=== PATIENT | male | born 1990 | race Caucasian/White ===

== ENCOUNTER 2020-03-17 17:43 | Emergency (ER) | payer SELFPAY, OTHER ==
[2020-03-17] MEDS ORDERED: AMIODARONE IN DEXTROSE,ISO-OSM 360 MG/200 ML BAG IV ONE (17:44)
[2020-03-17] MEDS ORDERED: NA CHLORIDE 0.9% 1,000 ML IV ONE (17:44)
[2020-03-17 18:03] LABS: Absolute Lymphocytes (CBC) 5.9 K/uL (0.7-4.9); Basophils % 0.9 % (0-1.3); Hematocrit 47.6 % (39.6-49.0); Lymphocytes % 40.1 % (15.3-44.8); MPV 8.9 fL (7.6-11.3); RBC Red Blood Cell Count 5.02 M/uL (4.33-5.43)
[2020-03-17] MEDS ORDERED: AMIODARONE HCL 150 MG/3 ML INJ IV ONE ×2 (18:09→18:17)
[2020-03-17] MEDS ORDERED: D5W 250 ML IV ONE (18:10)
[2020-03-17 18:13] LABS: Protime INR 1.14
[2020-03-17] MEDS ORDERED: MIDAZOLAM HCL 2 MG/2 ML INJ ONE ×4 (18:19→20:46)
[2020-03-17] MEDS ORDERED: LORazepam 2 MG/ML VIAL ONE (18:19)
[2020-03-17 18:39] LABS: ALT/SGPT 76 U/L (12-78); Albumin 2.7 g/dL (3.4-5.0); Alkaline Phosphatase 94 U/L (45-117); BUN Blood Urea Nitrogen 8 mg/dL (7-18); Bicarbonate 21 mmol/L (21-32); Bilirubin Direct 0.1 mg/dL (0-0.2); Bilirubin Total 0.6 mg/dL (0.2-1.0); Glucose Level 322 mg/dL (74-106); NT PRO-BNP 20 pg/mL (<125); Protein, Total 5.4 g/dL (6.4-8.2); Sodium Level 141 mmol/L (136-145); Troponin (Emerg Dept Use Only) 0.42 ng/mL (0.0-0.045)
[2020-03-17 18:40] LABS: AST/SGOT 116 U/L (15-37); Magnesium 1.9 mg/dL (1.8-2.4); Potassium 3.8 mmol/L (3.5-5.1)
--- NOTE | 2020-03-17 19:08 | RAD REPORT ---
EXAM DESCRIPTION: CT - Head Brain Wo Cont - 03/17/2020 6:55 pm CLINICAL HISTORY: unresponsive Headache, drowsiness, unresponsive, seizure like activity COMPARISON: No comparisons TECHNIQUE: All CT scans are performed using dose optimization technique as appropriate and may inclu de automated exposure control or mA/KV adjustment according to patient size. FINDINGS: No intracranial hemorrhage, hydrocephalus or extra-axial fluid collection.No areas of brai n edema or evidence of midline shift. The paranasal sinuses and mastoids are essentially clear. The calvarium is intact. IMPRESSION: No acute intracranial abnormality.
--- NOTE | 2020-03-17 19:08 | RAD REPORT ---
EXAM DESCRIPTION: RAD - Chest Single View - 03/17/2020 6:35 pm CLINICAL HISTORY: unresponsive Chest pain. COMPARISON: No comparisons FINDINGS: Portable technique limits examination quality. Moderate patchy pulmonary opacities are present, greater on the left, likely representing pulmonary e susanna or pneumonia. The heart is normal in size. ET tube tip is above the norbert.Enteric tube tip is i n the distal esophagus.
[2020-03-17] MEDS ORDERED: propofoL 1,000 MG/100 ML VIAL IV ONE (19:10)
--- NOTE | 2020-03-17 19:12 | RAD REPORT ---
EXAM DESCRIPTION: CT - Chest For Pe Angio - 03/17/2020 6:55 pm CLINICAL HISTORY: Chest pain. CPR COMPARISON: No comparisons TECHNIQUE: CT angiogram of the pulmonary arteries was performed with MIP. All CT scans are performed using dose optimization technique as appropriate and may include automated exposure control or mA/KV adjustment according to patient size. FINDINGS: Small filling defects are seen in both subsegmental lower lobe pulmonary arterial branches . These are likely small pulmonary emboli. No acute aortic finding demonstrated. Moderate bilateral pulmonary opacities are present suggesting pulmonary edema or pneumonia. Large air space consolidation in the left lung base posteriorly likely represents pneumonia. ET tube tip is abo ve the norbert. Enteric tube tip is in the distal esophagus. No significant pericardial or pleural fluid. No concerning bony finding. IMPRESSION: Small bilateral subsegmental branch pulmonary thromboemboli suspected in both lower lobe s. Extensive bilateral airspace pulmonary consolidations suggesting pulmonary edema or pneumonia. Endotr acheal intubation with tip above the norbert.
[2020-03-17] MEDS ORDERED: PIPER/TAZO/NS 3.375gm 3.375 GM/100 ML BAG ONE (19:21)
[2020-03-17 19:27] LABS: Barbiturates NEGATIVE (NEGATIVE); Benzodiazepines POSITIVE (NEGATIVE); Cocaine NEGATIVE (NEGATIVE); METHAMPHETAM NEGATIVE (NEGATIVE); Methadone NEGATIVE (NEGATIVE); Opiates NEGATIVE (NEGATIVE); Phencyclidine NEGATIVE (NEGATIVE); THC Cannibis NEGATIVE (NEGATIVE)
--- NOTE | 2020-03-17 19:38 | EDPHYS ---
Physician Documentation [facility] Chris Name: Delonte Jordan Age: 29 yrs Sex: Male : 1990 Arrival Date: 03/17/2020 Time: 17:47 Bed 3 Private MD: ED Physician Mir Ledezma HPI: 03/17 18:46 This 29 yrs old Male presents to ER via Unassigned with complaints of rn seizure, collapse. 17:56 Per EMS, patient was seen drinking a [employer] energy drink, collapsed, witnessed rn seizure, noted to be pulseless, + bystander CPR started, continued for about 7 minutes until EMS arrived, ACLS performed, intubated, and continued for about 15-20 min until ROSC. No known medical problems. . 18:46 Preceding the arrest, the patient collapsed. Pre-hospital course: The arrest was rn witnessed Bystanders at the scene performed CPR. EMS care prior to arrival: initiation of ACLS, intubation backboard, ACLS has been in progress for 20 minutes. The patient has not experienced similar symptoms in the past. father reports about to eat, turned around, collapsed, had seizure like activity. + family member with hx of seizures. No trauma noted, father caught him and let him down. No drug use. Just came back from [place]. . Historical: - Allergies: 19:17 Unable to obtain; ph - PMHx: 19:17 Unable to obtain; ph - Immunization history:: Adult Immunizations unknown. - Social history:: Smoking status: unknown. - Hospitalizations: : No recent hospitalization is reported. - History obtained from: father. ROS: 18:46 Unable to obtain ROS due to obtunded state. rn Exam: 18:46 Constitutional: Thin male, sedated, intubated, bright red blood from ETT Head/Face: rn Normocephalic, atraumatic. ENT: Blood in bilateral nares Cardiovascular: Tahcycardic, regular Respiratory: Coarse bilateral breath sounds, worse on left Abdomen/GI: soft, non-tender MS/ Extremity: Pulses equal, no cyanosis. Neuro: GCS 3, intubated 20:28 ECG was reviewed by the Attending Physician. aileen Vital Signs: 18:00 BP 130 / 95; Pulse 126; Resp 18 A; Pulse Ox 98% on 15 lpm ETT ambu; ph 18:15 BP 126 / 79; Pulse 130; Resp 16; Pulse Ox 100% on ETT vent; ph 18:30 BP 115 / 76; Pulse 128; Resp 18; Pulse Ox 100% on ETT vent; ph 18:45 BP 121 / 92; Pulse 118; Resp 18; Pulse Ox 100% on ETT vent; ph 19:00 BP 121 / 74; Pulse 117; Resp 18; Pulse Ox 100% on ETT vent; ph 19:15 Weight 90 kg; lp1 19:17 Temp 96.7(C); mg2 19:18 BP 135 / 73; Pulse 114; Resp 18; Pulse Ox 99% ; mg2 20:12 BP 115 / 70; Pulse 122; Resp 16; Temp 98.2; Pulse Ox 100% on 100% FiO2 ETT vent; mg2 20:25 BP 116 / 68; Pulse 115; Resp 16; Temp 98.6; Pulse Ox 97% on 100% FiO2 ETT vent; mg2 20:45 BP 100 / 61; Pulse 110; Resp 16; Temp 98.7(C); Pulse Ox 98% on 100% FiO2 ETT vent; mg2 21:10 BP 104 / 76; Pulse 101; Resp 17; Temp 98.7; Pulse Ox 100% on 100% FiO2 ETT vent; mg2 Procedures: 17:55 Central Line: the site was prepped with Betadine, in sterile fashion, a triple lumen rn catheter was inserted, in the right femoral vein, in 1 attempts. placement was verified, by blood return, the site was dressed with Tegaderm, using sterile technique, the patient tolerated the procedure, well. MDM: 17:54 Patient medically screened. rn 18:46 Differential diagnosis: arrythmia, cardiac arrest, respiratory arrest, seizure. ED rn course: EMS reports giving ketamine after ROSC because patient sat up and was combative. They report purposeful movement as well and moving all 4 extremities. . 19:20 ED course: Consulted with Dr. Marley, recommends heparin given possible pulmonary rn hemorrhage, so can turn off if worsens. Also recommends steroids. COVID test sent. . 19:29 ED course: Initiated transfer to [facility] for bilateral PE with pulmonary hemorrhage. rn Is requiring sedation, abx ordered. . 19:33 Data reviewed: vital signs, nurses notes, lab test result(s), EKG, radiologic studies, rn CT scan, plain films, and as a result, I will admit patient. Counseling: I had a detailed discussion with the patient and/or guardian regarding: the historical points, exam findings, and any diagnostic results supporting the discharge/admit diagnosis, lab results, radiology results, the need to transfer to another facility, for higher level of care. Response to treatment: the patient's symptoms have mildly improved after treatment, and as a result, I will admit patient. 03/17 17:52 Order name: Acetaminophen; Complete Time: 18:53 eb 03/17 17:52 Order name: Basic Metabolic Panel; Complete Time: 18:53 eb 03/17 17:52 Order name: CBC with Diff; Complete Time: 18:32 eb 03/17 17:52 Order name: ETOH Level; Complete Time: 18:32 eb 03/17 17:52 Order name: Hepatic Function; Complete Time: 18:53 eb 03/17 17:52 Order name: PT-INR; Complete Time: 18:32 eb 03/17 17:52 Order name: Ptt, Activated; Complete Time: 18:32 eb 03/17 17:52 Order name: Salicylate; Complete Time: 18:53 eb 03/17 17:52 Order name: Urine Drug Screen; Complete Time: 19:35 eb 03/17 17:52 Order name: TS; Complete Time: 20:26 eb 03/17 17:52 Order name: glucometer results - FOR PT WITH NO ID; Complete Time: 18:32 dh3 03/17 17:51 Order name: XRAY Chest (1 view); Complete Time: 19:11 eb 03/17 17:51 Order name: CT Head Brain wo Cont; Complete Time: 19:11 eb 03/17 17:54 Order name: Lactate; Complete Time: 18:32 eb 03/17 18:03 Order name: Troponin (Emerg Dept Use Only); Complete Time: 18:53 EDMS 03/17 18:03 Order name: NT PRO-BNP; Complete Time: 18:53 EDMS 03/17 18:04 Order name: Magnesium; Complete Time: 18:53 EDMS 03/17 18:33 Order name: CT Chest For PE Angio; Complete Time: 19:14 rn 03/17 20:12 Order name: ABO/RH no charge; Complete Time: 20:26 EDMS 03/17 20:46 Order name: SARS-COV-2 RT PCR EDDE 03/17 21:08 Order name: Lactate Sepsis 2 HR Follow-up EDDE 03/17 17:52 Order name: EKG; Complete Time: 17:53 eb 03/17 17:52 Order name: EKG - Nurse/Tech; Complete Time: 19:15 eb 03/17 17:52 Order name: IV Saline Lock; Complete Time: 19:15 eb 03/17 17:52 Order name: Labs collected and sent; Complete Time: 19:16 eb 03/17 17:52 Order name: Urine Dipstick-Ancillary (obtain specimen); Complete Time: 19:16 eb 03/17 17:54 Order name: Cardiac monitoring; Complete Time: 19:16 eb 03/17 17:54 Order name: O2 Per Protocol; Complete Time: 19:16 eb 03/17 17:54 Order name: O2 Sat Monitoring; Complete Time: 19:16 eb 03/17 17:55 Order name: NG Tube; Complete Time: 19:02 rn 03/17 18:10 Order name: Labs - recollect needed: green top/ hemolyzed; Complete Time: 19:02 eb EC:28 Rate is 116 beats/min. Rhythm is regular. QRS [place] is Normal. [place] interval is normal. aileen QRS interval is normal. QT interval is normal. No Q waves. T waves are Normal. Clinical impression: Sinus tachycardia and No evidence of ischemia. Interpreted by me. Reviewed by me. Administered Medications: 18:10 Drug: Ativan 2 mg Route: IVP; Site: right femoral; ph 19:39 Follow up: Response: No adverse reaction ph 18:15 Drug: Versed 2 mg Route: IVP; Site: right femoral; ph 19:39 Follow up: Response: No adverse reaction ph 18:15 Drug: amiodarone 450 mg, D5W 250 ml Route: IVPB; Rate: 1 mg/min; Site: right femoral; ph 21:09 Follow up: IV Status: Infusion continued upon transfer mg2 18:20 Drug: NS 0.9% 1000 ml Route: IV; Rate: 1 bolus; Site: right femoral; ph 19:37 Follow up: IV Status: Completed infusion; IV Intake: 1000ml lp1 19:39 Follow up: Response: No adverse reaction; IV Status: Completed infusion; IV Intake: ph 1000ml 18:40 Drug: Versed 2 mg Route: IVP; Site: right femoral; ph 19:39 Follow up: Response: No adverse reaction ph 19:00 Drug: Propofol 5 mcg/kg/min Route: IV; Rate: calculated rate; Site: right femoral; lp1 21:09 Follow up: Response: No adverse reaction; IV Status: Infusion continued upon transfer mg2 19:15 Drug: Zosyn 3.375 grams Route: IVPB; Infused Over: 60 mins; Site: right femoral; mg2 20:30 Follow up: Response: No adverse reaction; IV Status: Completed infusion mg2 19:16 Drug: NS 0.9% 1000 ml Route: IV; Rate: 1000 ml; Site: right femoral; mg2 20:29 Follow up: Response: No adverse reaction; IV Status: Completed infusion; IV Intake: mg2 1000ml 19:29 CANCELLED (will await consultation): Heparin (DVT/PE Drip) 18 units/kg/hr - ([place] 7[address]03 units, D5W 500 ml) IV at calculated rate Per protocol; Max initial rate 1800 units/hr 19:39 Drug: NS 0.9% 1000 ml Route: IV; Rate: 1000 ml; Site: right femoral; lp1 21:08 Follow up: Response: No adverse reaction; IV Status: Completed infusion; IV Intake: mg2 1000ml 19:50 Drug: ProTONIX 40 mg Route: IVP; Site: right femoral; mg2 20:29 Follow up: Response: No adverse reaction mg2 19:55 Drug: Decadron - Dexamethasone 10 mg Route: IVP; Site: left antecubital; mg2 21:09 Follow up: Response: No adverse reaction mg2 19:57 Drug: Versed 2 mg Route: IVP; Site: right femoral; mg2 20:29 Follow up: Response: No adverse reaction mg2 20:00 Drug: vancoMYCIN 1 grams Route: IVPB; Infused Over: 2 hrs; Site: right femoral; mg2 21:08 Follow up: Response: No adverse reaction; IV Status: Infusion continued upon transfer mg2 20:12 Drug: Versed 2 mg Route: IVP; Site: right femoral; mg2 20:30 Follow up: Response: No adverse reaction mg2 20:24 Drug: D5-1/2 NS with KCl 20 mEq/L 1000 ml Route: IV; Rate: 150 ml/hr; Site: right mg2 femoral; 21:08 Follow up: Response: No adverse reaction; IV Status: Infusion continued upon transfer mg2 20:24 Drug: Versed 2 mg Route: IVP; Site: right femoral; mg2 21:07 Follow up: Response: No adverse reaction mg2 20:42 Drug: Versed 2 mg Route: IVP; Site: right femoral; mg2 21:07 Follow up: Response: No adverse reaction mg2 21:07 Drug: Versed 2 mg Route: IVP; Site: right femoral; mg2 21:07 Follow up: Response: No adverse reaction mg2 Disposition: 19:33 Critical Care:. rn Disposition: 03/17/20 19:[address] [facility]. Diagnosis are Pulmonary embolism, Pneumonia, unspecified organism, Pulmonary hemorrhage. - Reason for transfer: Higher level of care. - Accepting physician is . - Condition is Serious. - Problem is new. - Symptoms have improved. Critical care time excluding procedures: 19:33 Critical care time: Bedside Care: 35 minutes, Consultation: 5 minutes, Family rn Intervention: 5 minutes. Total time: 45 minutes Signatures: Dispatcher [employer] EDMS Mir Ledezma MD MD cha Waters, Shelly, PEER EDUCATOR-C PEER EDUCATOR-Csnw Corey Bello MD MD rn Pena, Laura RN RN lp1 Edie Peters RN RN Kaela Holder Michele, RN RN mg2 Corrections: (The following items were deleted from the chart) 18:03 17:55 MAGNESIUM+C.LAB.BRZ ordered. EDDE EDDE 18:03 17:55 PROBNP+C.LAB.BRZ ordered. [facility] EDDE 18:03 17:55 TROPONIN (EMERG DEPT USE ONLY)+C.LAB.BRZ ordered. [facility] EDDE 19:29 19:19 Heparin (DVT/PE Drip) 18 units/kg/hr - (HEParin 48957 units, D5W 500 ml) IV at rn calculated rate Per protocol; Max initial rate 1800 units/hr ordered. rn 19:49 19:20 CORONAVIRUS+MR.LAB.BRZ ordered. [facility] EDDE 21:22 19:37 03/17/2020 19:[address] [facility]. mg2 Diagnosis is Pulmonary embolism; Pneumonia, unspecified organism; Pulmonary hemorrhage. Reason for transfer: Higher level of care. Accepting physician is . Condition is Serious. Problem is new. Symptoms have improved. rn
--- NOTE | 2020-03-17 19:38 | ER ---
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 17:55 Care prior to arrival: Oral intubation, CPR manually performed by bystander performed ph by EMS was defibrillated Medication(s) given: Epinephrine, Amiodarone, Ketamine IV initiated. IO to L lower leg. Compressions began prior to arrival. 18:27 Coronavirus screen: At this time, unable to obtain information related to travel ph outside the [place] Ebola Screen: No symptoms or risks identified at this time. Initial Sepsis Screen: Does the patient meet any 2 criteria? No. Patient's initial sepsis screen is negative. Does the patient have a suspected source of infection? No. Patient's initial sepsis screen is negative. Risk Assessment: Do you want to hurt yourself or someone else? Unable to obtain. Onset of symptoms was March 17, 2020. 18:27 Acuity: OANH 1 ph 18:27 Method Of Arrival: EMS: [facility] ph Historical: - Allergies: 19:17 Unable to obtain; ph - PMHx: 19:17 Unable to obtain; ph - Immunization history:: Adult Immunizations unknown. - Social history:: Smoking status: unknown. - Hospitalizations: : No recent hospitalization is reported. - History obtained from: father. Screenin:36 Abuse screen: Denies threats or abuse. Denies injuries from another. Nutritional ph screening: No deficits noted. Tuberculosis screening: No symptoms or risk factors identified. Fall Risk None identified. Assessment: 18:00 CPR assessment: unresponsive, intubated, Ambu ventilation, pale. 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 General: Appears slender, Behavior is unresponsive. Neuro: Level of Consciousness is unresponsive, Oriented to none. EENT: Nares with bleeding noted bilaterally. Cardiovascular: Capillary refill is sluggish in bilateral fingers Rhythm is sinus tachycardia. Respiratory: Airway is patent via oral intubation Respiratory effort is even, Respiratory pattern is regular, Ventilator assessment: ET Tube: 6.5. Derm: Skin is intact, Skin is pale, Skin temperature is cool. 18:30 Reassessment: Blood noted in ET tube, ERP notified, RT at bedside. ph 18:35 Reassessment: Pt taken to CT by RN and RT. ph 19:15 General: Appears intubated. Pain: Unable to use pain scale. Patient appears restless. mg2 Neuro: Level of Consciousness is listless. Cardiovascular: Capillary refill is sluggish Rhythm is sinus tachycardia. Respiratory: Airway is patent via oral intubation Respiratory effort is even, Respiratory pattern is regular. 19:15 Musculoskeletal: Capillary refill is sluggish. mg2 20:06 Reassessment: father at bedside with patient. lp1 20:45 Reassessment: father informed about the plan for transfer. mg2 21:00 Reassessment: report given to MAYE Doe of [facility] ICU. family signed the mg2 consent for transfer. 21:16 Reassessment: report given to [facility] [employer]. patient vitally stable. iv intact. covid mg2 negative. Vital Signs: 18:00 BP 130 / 95; Pulse 126; Resp 18 A; Pulse Ox 98% on 15 lpm ETT ambu; ph 18:15 BP 126 / 79; Pulse 130; Resp 16; Pulse Ox 100% on ETT vent; ph 18:30 BP 115 / 76; Pulse 128; Resp 18; Pulse Ox 100% on ETT vent; ph 18:45 BP 121 / 92; Pulse 118; Resp 18; Pulse Ox 100% on ETT vent; ph 19:00 BP 121 / 74; Pulse 117; Resp 18; Pulse Ox 100% on ETT vent; ph 19:15 Weight 90 kg; lp1 19:17 Temp 96.7(C); mg2 19:18 BP 135 / 73; Pulse 114; Resp 18; Pulse Ox 99% ; mg2 20:12 BP 115 / 70; Pulse 122; Resp 16; Temp 98.2; Pulse Ox 100% on 100% FiO2 ETT vent; mg2 20:25 BP 116 / 68; Pulse 115; Resp 16; Temp 98.6; Pulse Ox 97% on 100% FiO2 ETT vent; mg2 20:45 BP 100 / 61; Pulse 110; Resp 16; Temp 98.7(C); Pulse Ox 98% on 100% FiO2 ETT vent; mg2 21:10 BP 104 / 76; Pulse 101; Resp 17; Temp 98.7; Pulse Ox 100% on 100% FiO2 ETT vent; mg2 ED Course: 17:47 Patient arrived in ED. sv 17:50 Inserted saline lock: 20 gauge in left antecubital area, using aseptic technique. sv ,using aseptic technique. done by Edie VILLAVICENCIO Blood collected. 17:54 Corey Bello MD is Attending Physician. rn 18:00 Assisted provider with central line placement. Set up central line tray. Triple lumen ph line placed in right femoral. Line placed by Corey Bello MD Placement verified by CXR, blood return, Dressed with Tape, Tegaderm, Patient tolerated well. Before procedure, did Practitioner(s) obtain informed consent? No. Patient \\T\\ family education about procedure, CLABSI prevention and S/S of infection? No. Time-out/Briefing performed prior to start of procedure? Yes. Was handwashing/sanitizing done immediately prior to procedure? Yes. Was patient positioned to in a way to prevent air embolism? Yes. Was procedure site sterilized? Yes, with Was the site allowed to dry? No. Was local anesthetic and/or sedation utilized? Yes. During the procedure, did the Practitioner(s) maintain a sterile field? Yes. Were unused ports clamped during insertion? Yes. Was a 2nd qualified MD obtained after 3 unsuccessful insertion attempts? No. Was blood aspirated from each lumen? Yes. After the procedure, did the Practitioner(s) clean the site and apply a sterile dressing? Yes. 18:05 [place] cath inserted, using sterile technique, 16 Fr., by ED staff, balloon inflated, to ph gravity drainage, urine specimen collected. NGT: inserted 16 Fr. other oral route verified return of gastric contents, Placement verified by X-ray, to intermittent suction. Returned gastric contents. Patient tolerated well. 18:27 Edie Peters, MAYE is Primary Nurse. ph 18:35 XRAY Chest (1 view) In Process Unspecified. EDMS 18:55 CT Head Brain wo Cont In Process Unspecified. EDMS 18:55 CT Chest For PE Angio In Process Unspecified. EDMS 18:58 Triage completed. ph 19:07 Primary Nurse role handed off by Edie Peters, MAYE mw2 19:15 Manuel Collier, MAYE is Primary Nurse. mg2 19:22 Patient has correct armband on for positive identification. Placed in gown. Bed in low ph position. Call light in reach. Side rails up X2. equipment maintenance engineer on. Pulse ox on. NIBP on. 19:22 initiated a transfer with Shanae Mir from the [facility]. mw2 19:27 Patient transferred, IV remains in place. ph 19:36 Arm band placed on left wrist. ph 20:00 Shanae Mir from [facility] called and stated "we are still waiting mw2 for the nursing home assistant to find the pt a bed.". 20:06 Attending Physician role handed off by Corey Bello MD aileen 20:06 Mir Ledezma MD is Attending Physician. [facility] 20:23 called Shanae Mir from [facility] to get an update on the transfer. mw2 She stated " we are still waiting for a bed and the doctor to call back.". 20:24 initiated a transfer with Noemy Baumann from [facility]. mw2 20:42 repeat lactate sent to lab. mg2 Administered Medications: 18:10 Drug: Ativan 2 mg Route: IVP; Site: right femoral; ph 19:39 Follow up: Response: No adverse reaction ph 18:15 Drug: Versed 2 mg Route: IVP; Site: right femoral; ph 19:39 Follow up: Response: No adverse reaction ph 18:15 Drug: amiodarone 450 mg, D5W 250 ml Route: IVPB; Rate: 1 mg/min; Site: right femoral; ph 21:09 Follow up: IV Status: Infusion continued upon transfer mg2 18:20 Drug: NS 0.9% 1000 ml Route: IV; Rate: 1 bolus; Site: right femoral; ph 19:37 Follow up: IV Status: Completed infusion; IV Intake: 1000ml lp1 19:39 Follow up: Response: No adverse reaction; IV Status: Completed infusion; IV Intake: ph 1000ml 18:40 Drug: Versed 2 mg Route: IVP; Site: right femoral; ph 19:39 Follow up: Response: No adverse reaction ph 19:00 Drug: Propofol 5 mcg/kg/min Route: IV; Rate: calculated rate; Site: right femoral; lp1 21:09 Follow up: Response: No adverse reaction; IV Status: Infusion continued upon transfer mg2 19:15 Drug: Zosyn 3.375 grams Route: IVPB; Infused Over: 60 mins; Site: right femoral; mg2 20:30 Follow up: Response: No adverse reaction; IV Status: Completed infusion mg2 19:16 Drug: NS 0.9% 1000 ml Route: IV; Rate: 1000 ml; Site: right femoral; mg2 20:29 Follow up: Response: No adverse reaction; IV Status: Completed infusion; IV Intake: mg2 1000ml 19:29 CANCELLED (will await consultation): Heparin (DVT/PE Drip) 18 units/kg/hr - ([place] rn 29276 units, D5W 500 ml) IV at calculated rate Per protocol; Max initial rate 1800 units/hr 19:39 Drug: NS 0.9% 1000 ml Route: IV; Rate: 1000 ml; Site: right femoral; lp1 21:08 Follow up: Response: No adverse reaction; IV Status: Completed infusion; IV Intake: mg2 1000ml 19:50 Drug: ProTONIX 40 mg Route: IVP; Site: right femoral; mg2 20:29 Follow up: Response: No adverse reaction mg2 19:55 Drug: Decadron - Dexamethasone 10 mg Route: IVP; Site: left antecubital; mg2 21:09 Follow up: Response: No adverse reaction mg2 19:57 Drug: Versed 2 mg Route: IVP; Site: right femoral; mg2 20:29 Follow up: Response: No adverse reaction mg2 20:00 Drug: vancoMYCIN 1 grams Route: IVPB; Infused Over: 2 hrs; Site: right femoral; mg2 21:08 Follow up: Response: No adverse reaction; IV Status: Infusion continued upon transfer mg2 20:12 Drug: Versed 2 mg Route: IVP; Site: right femoral; mg2 20:30 Follow up: Response: No adverse reaction mg2 20:24 Drug: D5-1/2 NS with KCl 20 mEq/L 1000 ml Route: IV; Rate: 150 ml/hr; Site: right mg2 femoral; 21:08 Follow up: Response: No adverse reaction; IV Status: Infusion continued upon transfer mg2 20:24 Drug: Versed 2 mg Route: IVP; Site: right femoral; mg2 21:07 Follow up: Response: No adverse reaction mg2 20:42 Drug: Versed 2 mg Route: IVP; Site: right femoral; mg2 21:07 Follow up: Response: No adverse reaction mg2 21:07 Drug: Versed 2 mg Route: IVP; Site: right femoral; mg2 21:07 Follow up: Response: No adverse reaction mg2 Intake: 19:37 IV: 1000ml; Total: 1000ml. lp1 19:39 IV: 1000ml; Total: 2000ml. ph 20:29 IV: 1000ml; Total: 3000ml. mg2 21:08 IV: 1000ml; Total: 4000ml. mg2 Outcome: 19:37 ER care complete, transfer ordered by . rn 21:10 Transferred by helicopter to [facility] completed. mg2 21:10 Condition: stable 21:10 Instructed on the need for transfer, Demonstrated understanding of instructions. 21:12 Outcome report given to [facility] mg2 21:22 Patient left the ED. mg2 Signatures: Dispatcher [employer] EDAnabela Lee, RN RN Mir Ledezma MD MD cha Nieto, Roman, MD MD rn Pena, Laura, RN RN lp1 Edie Peters RN RN Fuad Ribeiro mw2 Manuel Collier RN RN mg2 Corrections: (The following items were deleted from the chart) 19:38 18:10 [place] cath inserted, using sterile technique, 16 Fr., by ED staff, balloon ph inflated, to gravity drainage, urine specimen collected. NGT: inserted 16 Fr. other oral route verified return of gastric contents, Placement verified by X-ray, to intermittent suction. Returned gastric contents. Patient tolerated well. ph 21:15 21:12 Outcome report given to [facility] mg2 mg2
[2020-03-17] MEDS ORDERED: dexAMETHasone 4 MG/ML VIAL ONE (19:46)
[2020-03-17] MEDS ORDERED: NA CHLORIDE 0.9% 1,000 ML ONE (19:52)
[2020-03-17] MEDS ORDERED: NA CHLORIDE 0.9% 250 ML ONE (19:54)
[2020-03-17] MEDS ORDERED: VANCOMYCIN 1 GM/VIAL ONE (19:54)
[2020-03-17] MEDS ORDERED: PANTOPRAZOLE 40 MG INJ ONE (20:07)
[2020-03-17] MEDS ORDERED: D5.45NS W/KCL 20MEQ 1,000 ML IV ONE (20:27)
[2020-03-17 22:13] VITALS: BP 104/76; TEMP 98.7; O2SAT 100
--- NOTE | 2020-03-20 10:11 | EKG ---
Test Date: 2020-03-17 Test Time: 17:59:54 Network Account Manager: SHAUN MEASUREMENT RESULTS: Intervals: Rate: 116 FL: 128 QRSD: 86 QT: 298 QTc: 414 [place]: P: 85 FL: 128 QRS: 91 T: 81 INTERPRETIVE STATEMENTS: Sinus tachycardia Rightward axis Borderline ECG No previous ECG available for comparison Electronically Signed On 03-20-20 10:07:04 CDT by Moises Morales
== END 2020-03-17 21:22 | disposition short-term general hospital (02) ==
LOC: ER 17:43
PROC: 06HM33Z Insertion of Infusion Device into Right Femoral Vein, Percutaneous Approach (ICD-10-PCS; principal; 2020-03-17)
DX: I26.99 Other pulmonary embolism without acute cor pulmonale (principal); J18.9 Pneumonia, unspecified organism; Z20.828 Contact with and (suspected) exposure to other viral communicable diseases; R04.89 Hemorrhage from other sites in respiratory passages
CPT/HCPCS: 36415; 51702; 70450; 71045; 71275; 80048; 80076; 80307; 80320; 80329; 82947; 83605; 83735; 83880; 84484; 85025; 85610; 85730; 86850; 86900; 86901; 92950; 93005; 99291; 99292; C9113; J0282; J1100; J2250; J2543; J2704; J3370; J7030; J7050; J7060; Q9967; U0003